=== PATIENT | female | born 1970 | race Caucasian/White ===

== ENCOUNTER 2017-01-14 10:18 | Day surgery (SDC) | payer OTHER ==
[~2017-01-14] VITALS: Ht 160 cm; Wt 36.5 kg
[~2017-01-14 10:18] MED LIST: CeFAZolin 2 Gm/50 mL D5W Duplex Bag IV ONE; DOCU240C41 PO; Lactated Ringer's 1,000 ML IV ONE; METH750T3 PO; OMEP20TA24 PO; TRAZ-118 PO; vicodin
[2017-01-14] MEDS ORDERED: fentaNYL-PF 50 mCg/mL 2 mL Inj ONE (10:19)
[2017-01-14] MEDS ORDERED: Ondansetron 2 mg/mL 2 mL Inj ONE (10:19)
[2017-01-14] MEDS ORDERED: Propofol 10,000 mCg/mL 20 mL Inj ONE (10:19)
[2017-01-14] MEDS ORDERED: Dexamethasone 4 mg/mL Inj ONE (10:19)
[2017-01-14] MEDS ORDERED: Ketamine 10 mg/mL 20 mL Inj ONE (10:19)
[2017-01-14 10:35] VITALS: BP 125/62; PULSE 75; RESP 12; O2SAT 95
[2017-01-14] MEDS ORDERED: CeFAZolin 2 Gm/50 mL D5W Duplex Bag IV ONE (10:57)
[2017-01-14] MEDS ORDERED: Lactated Ringer's 500 ML IV PRN ×2 (12:07→14:04)
[2017-01-14] MEDS ORDERED: Lactated Ringer's 1,000 ML IV SCH ×2 (12:07→14:04)
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
[2017-01-14] MEDS ORDERED: Dexamethasone 4 mg/mL Inj IVPUSH PRN ×2 (12:10→14:05)
[2017-01-14] MEDS ORDERED: Ondansetron 2 mg/mL 2 mL Inj IVPUSH PRN ×2 (12:10→14:05)
[2017-01-14] MEDS ORDERED: Atropine 0.4 mg/mL Inj IVPUSH PRN ×2 (12:10→14:05)
[2017-01-14] MEDS ORDERED: HYDROmorphone 1 mg/mL Inj IVPUSH PRN ×2 (12:10→14:05)
[2017-01-14] MEDS ORDERED: Phenylephrine 10,000 mCg/mL Inj IVPUSH PRN (12:10)
[2017-01-14] MEDS ORDERED: EPHEDrine Sulfate 50 mg/mL Inj IVPUSH PRN (12:10)
[2017-01-14] MEDS ORDERED: MetoCLOpramide 5 mg/mL 2 mL Inj IVPUSH PRN ×2 (12:10→14:05)
[2017-01-14] MEDS ORDERED: fentaNYL-PF 50 mCg/mL 2 mL Inj IVPUSH PRN (12:10)
[2017-01-14] MEDS ORDERED: Labetalol 5 mg/mL 4 mL Inj IV PRN ×2 (12:10→14:05)
[2017-01-14] MEDS ORDERED: Lactated Ringer's 1,000 ML IV ONE (13:33)
[2017-01-14] MEDS ORDERED: Bupivacaine-MPF 0.5% W/EPI 30 mL Inj INFILTRATE ONE (14:18)
--- NOTE | 2017-01-14 14:37 | PCM.SURGOP ---
Surgical Operative Report Date of Service: Jan 14, 2017 Pre Operative Diagnosis Right breast cancer Post Operative Diagnosis Same Procedure: Tunneled left subclavian central venous catheter with power port, intraoperative fluoroscopy with interpretation Surgeon and Brush Cleaner: Surgeon: Renato Hagan MD Assistants: Luis Neely MD PGY-3 Indication for Procedure 46-year-old woman who has been diagnosed with locally advanced right breast cancer, at least T3 N1, triple negative. Recent PET CT also shows a possible involved right level V cervical lymph node, but no distant sites of disease. Plan have been made to treat her with neoadjuvant chemotherapy. After discussion of risks and benefits, she agreed to proceed with Port-A-Cath placement. Findings: The catheter tip was positioned at the cavoatrial junction, confirmed with fluoroscopy. Procedure Details After smooth induction of monitored anesthesia care, the patient was positioned in the supine position with both arms tucked. The patient was prepped and draped in wide sterile fashion. A procedural pause was performed according to the SCOAP checklist, and all were found to be in agreement. The patient was placed in Trendelenburg position. The left subclavian vein was accessed with a finder needle, and the 0.035 inch wire was passed into the vena cava. It was confirmed with fluoroscopy. A subcutaneous pocket was created on the left upper chest wall using electrocautery. The port reservoir was secured to the fascia with interrupted 3-0 Vicryl sutures. The catheter was connected to the tunneler, and tunneled under the subcutaneous tissue to the venipuncture site. The introducer sheath and dilator was passed over the wire under fluoroscopic guidance. The catheter was then passed through the tear-away sheath into the vena cava. The sheath was removed. The catheter was then pulled back under fluoroscopic guidance until the tip was positioned at the cavoatrial junction. The catheter was cut to size, and connected to the port reservoir. The port was accessed using a Crawford needle, which aspirated and flushed easily. The port was then flushed with the final heparin flush, consisting of 100 units per mL, a total of 4 mL. A final fluoroscopic image confirmed that the port was in good position with no kinks, and there was no evidence of pneumothorax. The incision was closed with a running 4-0 Monocryl subcuticular stitch. The port was left accessed as she will be receiving chemotherapy tomorrow. Steri-Strips and sterile dressings were applied. At the end of the case all needle and sponge counts were correct 2. The patient was awakened from anesthesia without difficulty, and taken to the recovery room in satisfactory condition, having tolerated the procedure well. Complications There were no periprocedural complications identified. Surgical Specimen Removed: No Specimen sent to Pathology: Not applicable Anesthetic Plan: MAC Grafts, Implants: Implants-See Implant Record Output, Estimated Blood Loss: 10 Blood Administration during marquis: No Drains: None Catheters: None copies to: Allen Bell MD; Yanna Jarrett MD, Joshua D MD Jan 14, 2017 14:37
[2017-01-14] MEDS ORDERED: oxyCODONE-Acetamin 5-325 mg Tablet PO PRN (15:00)
[2017-01-14 15:03] VITALS: BP 148/67; PULSE 80; RESP 14; O2SAT 93
--- NOTE | 2017-01-14 15:05 | PCM.DISURG ---
Surgical Discharge Instruction Date of Service Jan 14, 2017 Dates of Hospitalization Date of Hospital Admission Providers Admitting Physician: Primary Care Physician: Allen Bell MD Attending Physician: Renato Hagan MD Discharge Diagnosis Post Operative diagnosis Same Diet Discharge Diet: No restrictions Activity Discharge Activity-General: Be up and about, Activity as pain allows, No driving while taking narcotic Dressing and Incisional Care Dressing Care: Allow Steri Stripes to fall off Hygiene: May shower after (24 hours), DO NOT soak incision under water, NO bathtub, hot tub or whirlpool Follow Up Plan Follow Up Plan Follow up with your oncologist in the next several weeks. Call your provider for: Fever, Chills, Wound redness, Discharge @ incision, pus discharge Fredy Neely MD Jan 14, 2017 15:05
[2017-01-14 15:28] VITALS: BP 138/71; PULSE 82; RESP 14; O2SAT 95
--- NOTE | 2017-01-14 16:12 | PCM.ANEP1 ---
Post Anesthesia PACU Phase 1 Assessment Date of Service: Jan 14, 2017 Vital Signs Vital Signs Date Time Temp Pulse Resp B/P Pulse Ox O2 Delivery O2 Flow Rate FiO2 01/14/17 15:28 82 14 138/71 95 Room Air 01/14/17 15:03 80 14 148/67 93 Room Air 01/14/17 10:35 36.5 75 12 125/62 95 Room Air Anesthetic Administered: MAC Level of Alertness: Awake, talking SHEPARD's with Equal Strength: Yes Pain: Yes Pain Scale Score: 6 Nausea or Vomiting: No CV Function & Hydration Stable: Yes Airway Device: Oxygen Delivery: Room Air, Simple Mask Lungs: Clear to Auscultation, Normal Air Movement PACU Phase 2 Assessment Patient Instructions Provided: N/A Rick Gandhi DO Jan 14, 2017 16:12
[2017-01-14 16:14] VITALS: BP 136/68; PULSE 78; RESP 14; O2SAT 96
--- NOTE | 2017-01-14 20:41 | DRSVH ---
PROCEDURE: X-RAY SUGICAL FLUORO-VENOUS ACCESS INDICATIONS: RIGHT BREAST CANCER COMPARISON: None. FINDINGS: 2 submitted images demonstrate placement of a left chest port with tube tip projected over the cavoatrial junction. IMPRESSION: Placement of left chest port with tube tip projected over the cavoatrial junction. Dictated by: Marcos Bruce [facility] Interpreted: Carlos Cade MD on 01/14/2017 at 16:37 Approved by: Carlos Cade M.D. on 01/14/2017 at 20:40
== END 2017-01-14 23:59 | disposition home or self-care (01) ==
LOC: SAS 10:18
PROVIDERS: ATTEND Student in an Organized Health Care Education/Training Program
DX: C50.411 Malignant neoplasm of upper-outer quadrant of right female breast (principal); C50.911 Malignant neoplasm of unspecified site of right female breast; M54.9 Dorsalgia, unspecified; F41.8 Other specified anxiety disorders; K21.9 Gastro-esophageal reflux disease without esophagitis; M79.7 Fibromyalgia; E66.01 Morbid (severe) obesity due to excess calories; Z68.42 Body mass index [BMI] 45.0-49.9, adult; Z86.69 Personal history of other diseases of the nervous system and sense organs; Z17.1 Estrogen receptor negative status [ER-]
CPT/HCPCS: 36561; 77001; C1788; J0690; J1100; J1170; J2250; J2405; J3010; J7120

== ENCOUNTER 2017-02-10 04:35 | Emergency (ER) | payer OTHER ==
[~2017-02-10] VITALS: Ht 160 cm; Wt 118.2 kg
[~2017-02-10 04:35] MED LIST changes: -CeFAZolin 2 Gm/50 mL D5W Duplex Bag IV ONE; -Lactated Ringer's 1,000 ML IV ONE
[2017-02-10 04:38] VITALS: BP 130/67; PULSE 98; RESP 18; O2SAT 94
[2017-02-10] MEDS ORDERED: 0.9% Sodium Chloride 1,000 ML IV ONE ×2 (05:36→08:05)
[2017-02-10] MEDS ORDERED: Dexamethasone 20 mg/2 mL Oral Solution PO ONE (05:40)
[2017-02-10 06:00] LABS: APPEARANCE,URINE SLIGHTLY CLOUDY (CLEAR,HAZY); COLOR,URINE DARK YELLOW (YELLOW); OCCULT BLOOD,URINE TRACE (NEGATIVE)
--- NOTE | 2017-02-10 06:19 | ED.REPORT ---
HPI-General Illness Date of Service Feb 10, 2017 ED Provider: Phillip Weaver MD Patient is a 46 year old female with a history of breast cancer who presents to the ED via EMS complaining of bilateral numbness in her legs onset last night. Associated symptoms include weakness, shaking, nausea, vomiting and intermittent sore throat. She denies fever, back pain, bowel or bladder dysfunction, abdominal pain, or cough. Patient states that it started while she was sitting in a chair at work and she was unable to move her foot. She reports that after she got out of the car and into the ambulance the weakness improved but she was still experiencing tingling in her legs. The patient reports that her last chemo treatment was two weeks ago and she has been experiencing problems including her body temperature dropping that she thinks is related to her treatment. Nursing Notes Stated Complaint: NUMBNESS IN LEGS Chief Complaint: General Complaint Nursing Notes Reviewed: Yes Allergies: Coded Allergies: Cantaloupe (Verified Allergy, Unknown, hives, trouble breathing when ingested. Headaches to smell, 01/10/17) All melons watermelon (Verified Allergy, Unknown, hives, trouble breathing when ingested. Headaches to smell, 01/10/17) All Melons Scheduled Amoxicillin/Clav K 875-125 mg (Augmentin 875-125 mg) 1 Each Tablet 1 TABLET PO BID Ciprofloxacin (Ciprofloxacin) 500 Mg Tablet 500 MG PO BID Omeprazole Magnesium (Prilosec Otc) 20 Mg Tablet.dr 40 MG PO DAILY Trazodone (Trazodone) 100 Mg Tablet 100 MG PO HS Scheduled PRN ([vicodin]) 5/325 1 TAB QID PRN PRN For Pain Docusate Calcium (Stool Softener) 240 Mg Capsule 240 MG PO PRN For Constipation Methocarbamol (Methocarbamol) 750 Mg Tablet 750 MG PO BID PRN PRN For Spasm General Time Seen by MD: 05:54 Chief Complaint Other Hx Obtained From: Patient Arrived By: Ambulance Sudden in Onset?: Yes Onset Occurred: Yesterday Symptom Duration: Since onset Severity: Current: No pain currently Recent Healthcare: Recent doctor visit Past Medical History Past Medical History Notes: High frequency ED user. Past Medical History Fibromyalgia Chronic Obesity Medicinal opiate overuse 8 years ago Chronic back pain breast cancer Past Surgical History Reports: Tubal ligation Family History Reviewed, not relevant Smoking History Never Smoker Social History Alcohol Use: "Social" Drug Use: Denies drug use Other Social History: , Local resident Occupation work at [employer] Ambulatory Status Independent Review of Systems Full Review of Systems Constitutional: Denies: Chills, Fever Ears / Nose / Throat: Reports: Sore throat Respiratory: Denies: Non-productive cough, Shortness of breath GI: Reports: Nausea, Vomiting, Denies: Abdominal pain Musculoskeletal: Denies: Back pain Skin: Denies Itching, Denies Rash Neurologic: Reports: Numbness, Shaking, Weakness, Denies: Bladder dysfunction, Bowel dysfunction Complete sys rev & neg: except as marked. Physical Exam Vital Signs Vital Signs Date Time Temp Pulse Resp B/P Pulse Ox O2 Delivery O2 Flow Rate FiO2 02/10/17 10:38 36.9 88 16 122/54 95 Room Air 02/10/17 08:13 92 16 123/62 95 Room Air 02/10/17 04:38 37.0 98 18 130/67 94 Room Air Initial VS: Reviewed General/Constitutional: Awake, Alert Head / Eyes: Atraumatic, Normocephalic, PERRL, EOMI Respiratory / Chest: Atraumatic, Breath sounds NL, Breath sounds = bilat, No respiratory distress Cardiovascular: Heart rate NL, Regular rhythm, Heart sounds NL, No gallop, No murmurs, No rubs Abdomen: Atraumatic, Soft, Non-tender, BS normoactive Back: Atraumatic, Non-tender, No midline vertebral tend, No paraspinal tenderness Upper Extremities Upper Extremity / MS: Atraumatic, Full range of motion Lower Extremity / Pelvis / MS: Atraumatic, Neurologic intact, Vascular intact pulses intact feet are warm strength 5/5 bilaterally light touch sensation intact Skin: Atraumatic, Color NL, No rash, Warm, Dry Neurologic: Oriented X3, Speech NL, No motor deficits, No sensory deficits, Reflexes equal bilat tested EHL, AE, Quads and Hamstrings- no weakness Interpretation & Diagnostics Lab Results Interpretation Result Diagram: 02/10/17 0645 02/10/17 0645 Test 02/10/17 05:45 02/10/17 06:45 Urine Color Dark yellow (YELLOW) Urine Appearance Slightly cloudy Urine pH 6.0 (5.0-8.0) Urine Specific [place] 1.016 (1.003-1.035) Urine Protein Negativemg/dL (NEG,TRACE) Urine Glucose (UA) Negativemg/dL (NEGATIVE) Urine Ketones Negativemg/dL (NEGATIVE) Urine Occult Blood Trace (NEGATIVE) Urine Nitrite Negative (NEGATIVE) Urine Bilirubin Negative (NEGATIVE) Urine Urobilinogen 1.0mg/dL (NORMAL) Urine Leukocyte Esterase Negative (NEGATIVE) Urine RBC 0-2/hpf (0-2) Urine WBC 0-5/hpf (0-5) Urine Epithelial Cells Moderate/hpf (NONE-MOD) Urine Crystals None seen (NONE SEEN) Urine Bacteria Moderate/hpf (NONE-FEW) Urine Hyaline Casts None/lpf (NONE) Urine Granular Casts None seen (NONE SEEN) Urine Waxy Casts None seen (NONE SEEN) Urine Red Blood Cell Casts None seen (NONE SEEN) Urine White Blood Cell Casts None seen (NONE SEEN) Urine Mucus Present (None Seen) Urine Trichomonas None seen (NONE SEEN) Urine Yeast None (NONE SEEN) Urinalysis Comment None Urine Culture Reflexed Indicated White Blood Count 15.0th/mm3 (3.8-10.1) Red Blood Count 3.48mil/mm3 (3.90-5.20) Hemoglobin 10.4g/dL (12.0-15.6) Hematocrit 32.2% (35.0-46.0) Mean Corpuscular Volume 92.5fL (81-100) Mean Corpuscular Hemoglobin 29.9pg (27.0-35.0) Mean Corpuscular Hemoglobin Concent 32.3% (32.0-37.0) Red Cell Distribution Width 14.1% (12.3-15.4) Platelet Count 156bil/L (150-400) Neutrophils (%) (Auto) 68% (40-74) Lymphocytes (%) (Auto) 9% (14-46) Monocytes (%) (Auto) 8% (4-12) Eosinophils (%) (Auto) 1% (0-5) Basophils (%) (Auto) 0% (0-3) Band Neutrophils % 11% (1-5) Metamyelocytes % 2% (0-0) Myelocytes % 1% (0-0) Prothrombin Time 10.3sec (8.1-12.5) Prothromb Time International Ratio 0.96ratio Sodium Level 141mEq/L (134-144) Potassium Level 3.2mEq/L (3.5-5.2) Chloride Level 100mEq/L (97-108) Carbon Dioxide Level 24mmol/L (18-29) Blood Urea Nitrogen 4mg/dL (6-24) Creatinine 0.74mg/dL (0.57-1.00) Estimat Glomerular Filtration Rate 122mL/min (>59) Glucose Level 118mg/dL (60-99) Lactic Acid Level 2.5mmol/L (0.4-2.0) Calcium Level 8.8mg/dL (8.5-10.1) Magnesium Level 1.9mg/dL (1.6-2.6) Total Bilirubin 0.2mg/dL (0.0-1.2) Aspartate Amino Transf (AST/SGOT) 13U/L (0-50) Alanine Aminotransferase (ALT/SGPT) 13U/L (0-32) Alkaline Phosphatase 75U/L (25-150) Total Protein 6.4g/dL (6.4-8.4) Albumin 4.0g/dL (3.4-5.0) X-Ray Chest Interpretation Chest Xray Interpretation: IMPRESSION: 1. No evidence of pneumonia. Dictated by: Corey Vega M.D. on 02/10/2017 at 9:04 Approved by: Corey Vega M.D. on 02/10/2017 at 9:05 View: Portable, 1 view Interpretation / Wet Read by: Interpret - Radiologist Re-Eval/Medical Decision Med Decision/Clinical Course 46-year-old female who recently started chemotherapy for breast cancer. Also is getting granulocyte stimulation. She presents today with rigors and weakness. She does not have a fever, she has a white count of 15,000 and a urinalysis triggered a culture but looks to probably be a contaminant. The patient has a Port-A-Cath in place blood cultures have been obtained. She is neurologically intact, and has a recent PET scan that did not show any events of metastatic disease in the lumbar thoracic spine. I think it is unlikely that there is any acute neurologic process causing transient bilateral stocking distribution of paresthesias and by the patient's report weakness which is now resolved. He is noted to have some mild hypokalemia and this was replaced in the emergency department. Per the recommendation of oncology she was started on Augmentin and Cipro. Time of Eval: 09:43 Patient Status: Condition improved Re-Evaluation/Progress Note: Discussed results and plan for discharge with outpatient follow up. Patient understands and agrees to plan. All questions were addressed. Consultation : Referral / Consult Name: Yanna Jarrett MD Consulted With: On-call physician (oncology) Call Returned at: 09:10 Note: Consult with Dr. Jarrett, who recommends starting the patient on Augmentin and Cipro then treat outpatient. Counseled Regarding: Diagnosis, Lab results, Need for follow-up, When/why to return to ED Discharge & Departure Primary Impression: Rigors Additional Impression: Hypokalemia due to inadequate potassium intake Discharge Condition All VS Reviewed: Yes Condition: Stable Additional Instructions: Emergency Department evaluation today included review, examination labs review of past records and chest x-ray. No serious cause for diffuse tremors and leg weakness is identified today, leg weakness has resolved. Thee tremors described are suggestive of rigors, or shivering which occurs with onset of a fever. We did not find a serious infection to cause fever, we checked urine, chest x-ray and general exam. Blood cultures have been sent, we will notify you if a result from this suggests a need for additional treatment. After discussion with Dr Jarrett we have started augmentin and cipro. Take these twice daily for 5 days. Increasing dietary intake of potassium with banannas or tomatoes will help potassium. Return to the ED for uncontrolled vomiting, fevers shortness of breath cough or abdominal pain. Referrals: Allen Bell MD (PCP) Yanna Jarrett MD Attestation Portions of this note were transcribed by Maryellen Sahni. I, Dr. Weaver personally performed the history, physical exam and medical decision-making; I reviewed and confirmed the accuracy of the information in the transcribed note. Signed by: Arvind Tse, 02/10/17 copies to: Allen Bell MD; Yanna Jarrett MD, Donald L MD Feb 10, 2017 06:19 Tamiko Sahni Feb 10, 2017 06:55
[2017-02-10 06:54] LABS: Mean Corpuscular Hemoglobin 29.9 pg (27.0-35.0); Mean Corpuscular Volume 92.5 fL (81-100); Platelet Count 156 bil/L (150-400)
[2017-02-10] MEDS ORDERED: Ondansetron 2 mg/mL 2 mL Inj IVPUSH ONE ×2 (06:55→08:55)
[2017-02-10 07:22] LABS: INR 0.96 ratio
[2017-02-10 07:27] LABS: BASOPHILS % (AUTO) 0 % (0-3); EOSINOPHILS % (AUTO) 1 % (0-5); MONOCYTES % (AUTO) 8 % (4-12); NEUTROPHILS % (AUTO) 68 % (40-74)
[2017-02-10 07:29] LABS: Magnesium 1.9 mg/dL (1.6-2.6)
[2017-02-10] MEDS ORDERED: Potassium Chloride 20 mEq/15 mL 15mL Oral Soln PO ONE (08:05)
[2017-02-10 08:13] VITALS: BP 123/62; PULSE 92; RESP 16; O2SAT 95
--- NOTE | 2017-02-10 09:06 | DRSVH ---
PROCEDURE: X-RAY CHEST ONE VIEW, PORTABLE ([id number]) INDICATIONS: leukocytosis TECHNIQUE: One view of the chest was acquired. COMPARISON: [facility], , CHEST 2 VIEW, 06/30/2016, 2:48. FINDINGS: Surgical changes and devices: Left subclavian central venous catheter is demonstrated with the tip ex tending to the junction of the left innominate vein and superior vena cava. Lungs and pleura: No pleural effusions or pneumothorax. Lungs are clear. Mediastinum: Mediastinal contours appear unchanged. Heart size is mildly enlarged. Bones and chest wall: No suspicious bony lesions. Overlying soft tissues appear unremarkable. IMPRESSION: 1. No evidence of pneumonia. Dictated by: Corey Vega M.D. on 02/10/2017 at 9:04 Approved by: Corey Vega M.D. on 02/10/2017 at 9:05
[2017-02-10] MEDS ORDERED: Amoxicillin-Clav 875-125 mg Tablet PO ONE (09:45)
[2017-02-10] MEDS ORDERED: CIPR-198 PO (09:53)
[2017-02-10] MEDS ORDERED: AMOX-366 PO (09:53)
[2017-02-10 10:38] VITALS: BP 122/54; PULSE 88; RESP 16; O2SAT 95
== END 2017-02-10 10:39 ==
LOC: SED 04:35
DX: R68.89 Other general symptoms and signs (principal); E87.6 Hypokalemia; Z85.3 Personal history of malignant neoplasm of breast; Z91.018 Allergy to other foods
CPT/HCPCS: 36415; 71010; 80053; 81000; 83605; 83735; 85025; 85610; 87040; 87086; 87088; 87147; 96361; 96374; 96376; 99285; J2405; J7030